=== PATIENT | female | born 1990 | race African-American/Black ===

== ENCOUNTER 2017-06-22 12:56 | Outpatient (CLI) | payer OTHER | END 2017-06-22 12:57 | disposition home or self-care (01) | LOC: DTY/OP 12:56 | PROVIDERS: ATTEND Family Medicine | DX: O09.892 Supervision of other high risk pregnancies, second trimester (principal); E74.39 Other disorders of intestinal carbohydrate absorption | CPT/HCPCS: 97802 ==

== ENCOUNTER 2018-08-04 | Emergency (ER) | payer OTHER, SELFPAY ==
--- NOTE | 2018-08-04 08:13 | RAD ---
LEFT HAND 3 VIEWS: HISTORY: Left hand injury. FINDINGS: Very mild diffuse joint space narrowing and osteophytosis. No acute fracture, dislocation, or aggres sive osseous erosions. Ulna negative variant. IMPRESSION: Very mild osteoarthritic changes. No acute osseous abnormalities are demonstrated. POS: [facility]
== END 2018-08-04 00:35 | disposition home or self-care (01) ==
LOC: SCSER
DX: S60.222A Contusion of left hand, initial encounter (principal); F32.9 Major depressive disorder, single episode, unspecified; W22.8XXA Striking against or struck by other objects, initial encounter

== ENCOUNTER 2018-10-13 17:55 | Emergency (ER) | payer SELFPAY ==
[2018-10-13] MEDS ORDERED: Lidocaine 1% w/Epinephrine 1:100K 20 ML VIAL ONE (19:28)
[2018-10-13] MEDS ORDERED: Adacel (T-DAP) 0.5 ML SYRINGE ONE (19:57)
== END 2018-10-13 20:16 | disposition home or self-care (01) ==
LOC: ERS 17:55
DX: L02.412 Cutaneous abscess of left axilla (principal); F32.9 Major depressive disorder, single episode, unspecified
CPT/HCPCS: 10060; 90471; 90715; J2001